=== PATIENT | female | born 1970 | race Two or more races ===

== ENCOUNTER 2023-01-13 09:25 | Emergency (ER) | payer MEDICAID, SELFPAY ==
[2023-01-13 09:32] VITALS: BP 132/91; PULSE 90; RESP 18; TEMP 36.6; O2SAT 96; BMI 22.6
--- NOTE | 2023-01-13 09:41 | ED_ITS ---
HPI - Nausea/Vomiting/Diarrhea General Chief complaint: Nausea/Vomiting/Diarrhea Stated complaint: UTI SYMPTOMS Time Seen by Provider: 01/13/23 09:41 Source: patient Mode of arrival: walk-in History of Present Illness HPI Narrative: patient here for onset of vomiting about six days ago. She has not had a fever, she's not had any abdominal pain cramping or discomfort. She does not have any diarrhea. She says she's not been able to eat or drink much at all. She has had an old a history of ulcers many many years ago but she had pain with that. She still has her gallbladder but doesn't have any pain or discomfort in the right upper quadrant. She uses daily marijuana products. She is not a history of hepatitis. She does not have a primary care doctor. She has a low but discomfort with urination. She does not have back or flank pain. She's not seen any blood in her urine. She had a partial hysterectomy many many years ago. She does not have any other medical conditions but she's been using a lot of Tylenol, ibuprofen and Aleve for right knee pain. Related Data Allergies Allergy/AdvReac Type Severity Reaction Status Date / Time Sulfa (Sulfonamide Allergy Severe Verified 01/13/23 09:36 Antibiotics) [facility] Social History Smoking status: Current some day smoker Exam Narrative Exam Narrative: doesn't awake alert oriented ?3. Her blood pressure is normal. Pulse oximetry normal. Constitutional her skin is warm and dry mucous membranes are moist and pink. ENT shows no evidence of infection there is no pallor or evidence of scleral icterus. Respiratory her lungs are clear with no wheezes rales or rhonchi Heart rate and rhythm are normal no gallop or murmur. Abdomen soft and supple with no hepatomegaly. There is no rebound or rigidity or peritoneal findings. No discomfort with palpation. Extremities show no evidence of deep vein thrombosis phlebitis edema. Peripheral circulatory status is stable. Constitutional Vital Signs - 24 hr 01/13/23 09:32 Temperature 98 F Pulse Rate [Monitor] 90 Respiratory Rate 18 Blood Pressure [Left Arm] 132/91 H Pulse Oximetry 96 Oxygen Delivery Method Room Air Course Vital Signs Vital signs: Vital Signs Temperature 98 F 01/13/23 09:32 Pulse Rate 90 01/13/23 09:32 Respiratory Rate 18 01/13/23 09:32 Blood Pressure 132/91 H 01/13/23 09:32 Pulse Oximetry 96 01/13/23 09:32 Oxygen Delivery Method Room Air 01/13/23 09:32 Temperature 98 F 01/13/23 09:32 Pulse Rate 90 01/13/23 09:32 Respiratory Rate 18 01/13/23 09:32 Blood Pressure 132/91 H 01/13/23 09:32 Pulse Oximetry 96 01/13/23 09:32 Oxygen Delivery Method Room Air 01/13/23 09:32 MDM - Nausea/Vomiting/Diarrhea MDM Narrative Medical decision making narrative: this patient's screening lab clinical exam and history do not disclose an emergency medical condition. history is suggestive of cyclic vomiting. She will be given IV fluids and haloperidol. This discussed in more detail as I don't see another etiology of her condition.. Lab Data Labs: Lab Results 01/13/23 01/13/23 Range/Units 09:40 09:56 WBC 9.8 (4.0-11.0) 10^3/uL RBC 4.44 (4.20-5.40) 10^6/uL Hgb 14.3 (12.0-16.0) g/dL Hct 41.6 (36.0-48.0) % MCV 93.7 (81.0-99.0) fL MCH 32.2 (26.7-34.0) pg MCHC 34.4 (29.9-35.2) g/dL RDW 12.7 (11.0-15.0) % Plt Count 364 (150-450) 10^3/uL MPV 8.9 L (9.5-13.5) fL Neut % (Auto) 65.7 (43.0-75.0) % Lymph % (Auto) 24.9 (20.5-60.0) % [place] % (Auto) 6.2 (1.7-12.0) % Eos % (Auto) 2.5 (0.9-7.0) % Baso % (Auto) 0.4 (0.2-2.0) % Neut # (Auto) 6.4 (1.4-6.5) 10^3/uL Lymph # (Auto) 2.4 (1.2-3.8) 10^3/uL [place] # (Auto) 0.6 (0.3-0.8) 10^3/uL Eos # (Auto) 0.2 (0.0-0.7) 10^3/uL Baso # (Auto) 0.0 (0.0-0.1) 10^3/uL Abs Immat Gran (auto) 0.03 (0.00-0.03) 10^3/uL Imm/Tot Granulo (auto) 0.3 (0.0-0.5) % Sodium 138 (136-145) mmol/L Potassium 3.9 (3.5-5.1) mmol/L Chloride 103 (98-107) mmol/L Carbon Dioxide 26.3 (21.0-32.0) mmol/L Anion Gap 12.6 BUN 14.0 (7.0-18.0) mg/dL Creatinine 0.74 (0.55-1.02) mg/dL Est GFR ( Amer) >60 (>=60) Est GFR (Non-Af Amer) >60 (>=60) BUN/Creatinine Ratio 18.9 Glucose 106 (74-106) mg/dL Lactate 0.5 (0.4-2.0) mmol/L Calcium 9.1 (8.5-10.1) mg/dL Total Bilirubin 0.3 (0.2-1.0) mg/dL AST 16 (15-37) U/L ALT 20 (14-59) U/L Alkaline Phosphatase 80 (46-116) U/L Total Protein 7.5 (6.4-8.2) g/dL Albumin 3.8 (3.4-5.0) g/dL Globulin 3.7 g/dL Albumin/Globulin Ratio 1.0 Urine Color Yellow (YELLOW) Urine Clarity Clear (CLEAR) Urine pH 7.0 (5.0-9.0) Ur Specific [place] 1.020 (1.005-1.025) Urine Protein Negative (NEG/TRACE) mg/dL Urine Glucose (UA) Negative (NEGATIVE) mg/dL Urine Ketones Negative (NEGATIVE) mg/dL Urine Occult Blood Negative (NEGATIVE) Urine Nitrite Negative (NEGATIVE) Urine Bilirubin Negative (NEGATIVE) Urine Urobilinogen 0.2 (0.2-1.0) EU/dL Ur Leukocyte Esterase Negative (NEGATIVE) Acetaminophen <2.0 L (10.0-30.0) ug/mL Discharge Plan Discharge Chief Complaint: Nausea/Vomiting/Diarrhea Clinical Impression: Cyclic vomiting syndrome Referrals: Physician,Non-Staff, MD [Primary Care Provider] - 1 week
[2023-01-13 10:00] LABS: Bilirubin Urine NEGATIVE (NEGATIVE); Blood Urine NEGATIVE (NEGATIVE); Clarity Urine CLEAR (CLEAR); Color Urine YELLOW (YELLOW); Glucose Urine UA NEGATIVE (NEGATIVE); Ketones Urine NEGATIVE (NEGATIVE); Leukocyte Esterase Urine NEGATIVE (NEGATIVE); Nitrite Urine NEGATIVE (NEGATIVE); Protein Urine NEGATIVE (NEG/TRACE); Urine Microscopic Indicated NO; Urobilinogen Urine 0.2 EU/dL (0.2-1.0)
[2023-01-13 10:09] LABS: Basophils Percent Auto 0.4 % (0.2-2.0); Eosinophils Absolute Auto 0.2 10^3/uL (0.0-0.7); Eosinophils Percent Auto 2.5 % (0.9-7.0); Hematocrit 41.6 % (36.0-48.0); Hemoglobin 14.3 g/dL (12.0-16.0); Immature Granulocytes Abs Auto 0.03 10^3/uL (0.00-0.03); Immature Granulocytes Pct Auto 0.3 % (0.0-0.5); Lymphocytes Absolute Auto 2.4 10^3/uL (1.2-3.8); Lymphocytes Percent Auto 24.9 % (20.5-60.0); Mean Corpuscular HGB Conc 34.4 g/dL (29.9-35.2); Mean Corpuscular Hemoglobin 32.2 pg (26.7-34.0); Mean Corpuscular Volume 93.7 fL (81.0-99.0); Mean Platelet Volume 8.9 fL (9.5-13.5); Monocytes Absolute Auto 0.6 10^3/uL (0.3-0.8); Monocytes Percent Auto 6.2 % (1.7-12.0); Neutrophils Absolute Auto 6.4 10^3/uL (1.4-6.5); Neutrophils Percent Auto 65.7 % (43.0-75.0); Platelet Count 364 10^3/uL (150-450); Red Blood Count 4.44 10^6/uL (4.20-5.40); Red Cell Distribution Width 12.7 % (11.0-15.0); White Blood Count 9.8 10^3/uL (4.0-11.0)
[2023-01-13] MEDS: 0.9 % SODIUM CHLORIDE 1,000 ML 999 ML IV (10:11)
[2023-01-13] MEDS: HALOPERIDOL LACTATE 5 MG/ML VIAL IV (10:11)
[2023-01-13 10:23] LABS: Alanine Aminotransferase 20 U/L (14-59); Albumin Level 3.8 g/dL (3.4-5.0); Alkaline Phosphatase 80 U/L (46-116); Anion Gap 12.6; Aspartate Amino Transferase 16 U/L (15-37); BUN Creatinine Ratio 18.9; Bilirubin Total 0.3 mg/dL (0.2-1.0); Calcium 9.1 mg/dL (8.5-10.1); Carbon Dioxide 26.3 mmol/L (21.0-32.0); Chloride 103 mmol/L (98-107); Estimated GFR (African America >60 (>=60); Estimated GFR (Non-African Ame >60 (>=60); Globulin 3.7 g/dL; Glucose 106 mg/dL (74-106); Potassium 3.9 mmol/L (3.5-5.1); Sodium 138 mmol/L (136-145); Total Protein 7.5 g/dL (6.4-8.2)
[2023-01-13 10:25] LABS: Acetaminophen <2.0 ug/mL (10.0-30.0); Lactate/Lactic Acid 0.5 mmol/L (0.4-2.0)
== END 2023-01-13 11:07 | disposition home or self-care (01) ==
PROVIDERS: Emergency Provider Emergency Medicine Emergency Medical Services
DX: R11.15 Cyclical vomiting syndrome unrelated to migraine (principal); F17.210 Nicotine dependence, cigarettes, uncomplicated; Z90.711 Acquired absence of uterus with remaining cervical stump; F12.90 Cannabis use, unspecified, uncomplicated
CPT/HCPCS: 36415; 80053; 80329; 81003; 83605; 85025; 96374; 99285